=== PATIENT | male | born 1995 | race Two or more races ===

== ENCOUNTER 2020-08-05 00:47 | Emergency (ER) | payer SELFPAY ==
[~2020-08-05] VITALS: Ht 177.8 cm; Wt 82.0 kg
[2020-08-05 01:25] VITALS: BP 147/83
[2020-08-05] MEDS ORDERED: KETOROLAC 30MG/ML VIAL IM ONE (01:30)
== END 2020-08-05 01:41 | disposition home or self-care (01) ==
LOC: ER 00:47
DX: M54.9 Dorsalgia, unspecified (principal)
CPT/HCPCS: 96372; 99283; J1885